=== PATIENT | female | born 1965 | race Caucasian/White ===

== ENCOUNTER 2018-08-11 15:09 | Emergency (ER) | payer OTHER ==
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
--- NOTE | 2018-08-11 15:59 | RAD REPORT ---
EXAM DESCRIPTION: RAD - Shoulder Left 2 View - 08/11/2018 3:41 pm CLINICAL HISTORY: PAIN Trauma, left shoulder pain COMPARISON: No comparisons FINDINGS: Mild AC joint degenerative changes are present. No acute fracture demonstrated.
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
[2018-08-11] MEDS ORDERED: MEPERIDINE HCL 25 MG/0.5 ML ONE (16:13)
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
== END 2018-08-11 17:01 | disposition home or self-care (01) ==
LOC: ER 15:09
DX: S20.219A Contusion of unspecified front wall of thorax, initial encounter (principal); S43.402A Unspecified sprain of left shoulder joint, initial encounter; Y04.0XXA Assault by unarmed brawl or fight, initial encounter; F43.10 Post-traumatic stress disorder, unspecified
CPT/HCPCS: 71045; 73030; 71100; 96372; 99283; J2175